=== PATIENT | female | born 1995 | race Two or more races ===

== ENCOUNTER 2024-08-25 10:50 | Outpatient (CLI) | payer OTHER | END 2024-08-25 11:00 | disposition home or self-care (01) | LOC: PPH VACUNA 10:50 | PROVIDERS: ATTEND Emergency Medicine Pediatric Emergency Medicine | DX: Z23 Encounter for immunization (principal) ==

== ENCOUNTER 2024-12-25 16:20 | Emergency (ER) | payer OTHER ==
[~2024-12-25] VITALS: Ht 167.6 cm; Wt 79.4 kg
[2024-12-25] MEDS ORDERED: CLORAZEPATE D3.75 MG PO (16:27)
[2024-12-25] MEDS ORDERED: BUSPIRONE HCL7.5 MG PO (16:27)
[2024-12-25] MEDS ORDERED: SERTRALINE20 MG/1 ML PO (16:27)
[2024-12-25] MEDS ORDERED: HYDROXYZINE HCL25 MG PO (19:44)
[2024-12-25] MEDS ORDERED: hydrOXYzine PAMOATE 25 MG CAPSULE PO ONE ×2 (20:00→20:04)
== END 2024-12-25 20:51 | disposition home or self-care (01) ==
LOC: ER 16:22
DX: F41.0 Panic disorder [episodic paroxysmal anxiety] (principal); F41.9 Anxiety disorder, unspecified

== ENCOUNTER 2025-03-24 09:54 | Outpatient (CLI) | payer OTHER ==
[~2025-03-24 09:54] MED LIST: BUSPIRONE HCL7.5 MG PO; CLORAZEPATE D3.75 MG PO; HYDROXYZINE HCL25 MG PO; SERTRALINE20 MG/1 ML PO
== END 2025-03-24 10:01 | disposition home or self-care (01) ==
LOC: TOM 09:54
PROVIDERS: ATTEND Ophthalmology
DX: D17.0 Benign lipomatous neoplasm of skin and subcutaneous tissue of head, face and neck (principal)

== ENCOUNTER 2025-06-19 07:31 | Outpatient (CLI) | payer OTHER | END 2025-06-19 07:33 | disposition home or self-care (01) | LOC: TOM 07:31 | DX: H05.00 Unspecified acute inflammation of orbit (principal); D31.61 Benign neoplasm of unspecified site of right orbit ==